=== PATIENT | male | born 1980 | race Caucasian/White ===

== ENCOUNTER 2017-12-29 14:20 | Emergency (ER) | payer OTHER ==
[~2017-12-29] VITALS: Ht 177.8 cm; Wt 56.7 kg
[~2017-12-29 14:20] MED LIST: ANAPROX DS550 MG PO; BIAXIN500 MG PO; CLARITIN10 MG PO
[2017-12-29] MEDS ORDERED: NAPROSYN500 MG PO (14:39)
[2017-12-29] MEDS ORDERED: KEFLEX500 M1 PO (14:39)
== END 2017-12-29 17:20 | disposition home or self-care (01) ==
LOC: ED 14:20
DX: S51.842A Puncture wound with foreign body of left forearm, initial encounter (principal); W22.8XXA Striking against or struck by other objects, initial encounter; Y93.89 Activity, other specified; Y92.89 Other specified places as the place of occurrence of the external cause; Y99.8 Other external cause status

== ENCOUNTER → 2018-01-15 | Outpatient (CLI) | payer OTHER ==
[~2018-01-15] MED LIST changes: +KEFLEX500 M1 PO; +NAPROSYN500 MG PO
== END | disposition home or self-care (01) ==
LOC: ORTHO 02:33
DX: S50.852D Superficial foreign body of left forearm, subsequent encounter (principal); X58.XXXD Exposure to other specified factors, subsequent encounter

== ENCOUNTER → 2018-02-20 | Outpatient (CLI) | payer OTHER ==
[~2018-02-20] MED LIST changes: +NORCO 5-325 TA1 EACH PO; +ZOFRAN4 MG PO
[2018-02-20 11:42] LABS: BUN 10 mg/dl (7-24); CHLORIDE 106 mmol/L (98-107); SODIUM 141 mmol/L (136-145)
[2018-02-20 12:46] LABS: BASO # 0.1 10*3/uL (0.0-0.1); BASO % 0.9 % (0.0-1.0); EOS # 0.1 10*3/uL (0.0-0.4); EOS % 1.1 % (1.0-4.0); HEMATOCRIT 46.7 % (42.0-52.0); HEMOGLOBIN 15.3 g/dl (14.0-18.0); LYMPH # 1.3 10*3/uL (1.3-4.4); LYMPH % 20.3 % (27.0-41.0); MEAN CELL VOLUME 88.1 fl (80.0-94.0); MEAN CORPUSCULAR HGB 28.9 pg (27.0-31.0); MEAN CORPUSCULAR HGB CONC 32.8 g/dl (33.0-37.0); MEAN PLATELET VOLUME 10.1 fl (9.6-12.3); MONO # 0.5 10*3/uL (0.1-1.0); NEUT # 4.4 10*3/uL (2.3-7.9); NEUT % 69.4 % (47.0-73.0); PLATELET COUNT AUTOMATED 253 10*3/uL (130-400); RED CELL DISTRI WIDTH 13.2 % (0-14.5); WHITE BLOOD COUNT 6.4 10*3/uL (4.8-10.8)
== END | disposition home or self-care (01) ==
LOC: LAB 00:01 → EDSTATUS 15:15
PROVIDERS: Orthopaedic Surgery
DX: M79.5 Residual foreign body in soft tissue (principal)

== ENCOUNTER → 2020-05-11 | Outpatient (CLI) | payer SELFPAY | END | disposition home or self-care (01) | LOC: COVID19 14:51 | PROVIDERS: ATTEND Internal Medicine | DX: Z20.828 Contact with and (suspected) exposure to other viral communicable diseases (principal) ==